=== PATIENT | female | born 1990 | race African-American/Black ===

== ENCOUNTER 2016-12-29 21:35 | Emergency (ER) | payer BC ==
[2016-12-29] MEDS ORDERED: KETOROLAC TROMETHAMINE 60 MG/2 ML VIAL IM ONE ×2 (22:02→22:04)
[2016-12-29] MEDS ORDERED: KETOROLAC TROMETHAMINE 30 MG/ML VIAL IM ONE (22:07)
[2016-12-29] MEDS ORDERED: CEPHALEXIN MONOHYDRATE 250 MG CAPSULE PO ONE (22:07)
[2016-12-29] MEDS ORDERED: oxyCODONE HCL/ACETAMINOPHEN 1 TAB TABLET PO ONE (22:07)
[2016-12-29] MEDS ORDERED: CEPHALEXIN MONOHYDRATE 250 MG CAPSULE ONE (22:20)
[2016-12-29] MEDS ORDERED: oxyCODONE HCL/ACETAMINOPHEN 1 TAB TABLET ONE (22:20)
--- NOTE | 2016-12-29 22:24 | ERNOTE ---
Integumentary HPI - Narrative Date of Service: 12/29/16 - General Presenting Symptoms: abscess Time Seen by Provider: 12/29/16 21:44 Source: patient Exam Limitations: no limitations - Immun/Allergies/Home Medications Immunizations: IMMUNIZATION HX Immunizations Up to Date Yes History of Influenza Vaccine No Hx Pneumococcal Vaccination No Allergies/Adverse Reactions: Allergies Allergy/AdvReac Type Severity Reaction Status Date / Time No Known Allergies Allergy Unverified 12/29/16 21:41 Home Medications: HOME MEDICATIONS Cephalexin Monohydrate [Keflex] 500 mg PO QID #40 cap 12/29/16 [Last Taken Unknown] Clindamycin HCl [Cleocin HCl] 300 mg PO TID 12/29/16 [Last Taken Unknown] HYDROcodone/ACETAMINOPHEN [[place] 5-325] 1 - 2 tab PO Q6H PRN 12/29/16 [Last Taken Unknown] Sulfamethoxazole/Trimethoprim [Bactrim Ds] 1 tab PO BID #20 tab 12/29/16 [Last Taken Unknown] oxyCODONE HCL/ACETAMINOPHEN [Percocet 5 MG/325 MG] 1 tab PO Q8H #16 tablet 12/29 [Last Taken Unknown] - Pain Pain Score: 10 - History of Present Illness Narrative: Patient has been seen in multiple ER due to an abscess on the L axilla area. Patient was placed on antibiotics and send to a Surgeon for follow up. Location: Reports: axillary - L side Quality: Reports: painful Severity: severe Exposure: Reports: no cause identified Modifying Factors - (Improves): Reports: other - nothing Modifying Factors - (Worsens): Reports: other - palpation, movement Associated Symptoms: Reports: swelling/mass/lumps. Denies: fever, jaundice Prior Treatment: Reports: recently seen - Patient has been seen for same problem. Review of Systems - Review of Systems Constitutional: Present: chills EYE: Present: no symptoms reported ENT: Present: no symptoms reported Respiratory: Present: no symptoms reported Cardiology: Present: no symptoms reported Gastrointestinal/Abdominal: Present: no symptoms reported Genitourinary: Present: no symptoms reported Musculoskeletal: Absent: muscle pain, joint pain, joint swelling Skin: Present: lumps - Patient has a large mass on the L axilla area that is dripping a purulent material Neurological: Present: anxiety Endocrine: Present: no symptoms reported Hematologic/Lymphatic: Present: no symptoms reported Psych: Present: no symptoms reported All Other Systems: All systems neg except as marked - Patient's Past Medical History Patient History - Medical: No pertinent hx Patient History - Cardiac/Respiratory: No pertinent hx Patient History - Cancer: No Hx of Cancer Patient History - Surgical Procedures: Patient History - Other: None LMP (females 10-50): 3 weeks - Social History Living Situations: home Abuse History: No History of abuse Psych History: No pertinent hx Smoking Status: Former smoker Alcohol Use: none Drug Use: none - Immunizations Immunizations Up to Date: Yes Hx Pneumococcal Vaccination: No History of Influenza Vaccine: No Physical Exam - Physical Exam General Appearance: Present: wd/wn, alert, obese, other - Patient is on pain Eye Exam: Normal inspection: bilateral Ears, Nose, Throat: Present: normal ENT inspection, hearing grossly normal, normal pharynx Neck: Present: normal inspection, nontender Respiratory: Present: no respiratory distress, normal breath sounds, no accessory muscle use, chest nontender, lungs clear Cardiovascular/Chest: Present: regular rate, rhythm, no murmur, normal peripheral pulses Gastrointestinal/Abdominal: Present: normal bowel sounds Extremity Exam: Present: normal inspection, normal range of motion, other - There is mild swelling on the L proximal arm close to the axilla area Neurological Exam: Present: alert, oriented, normal mood/affect, no motor/ sensory deficits Skin Exam: Present: other - Patient has an abscess of 2cm x 2cm on the L axilla area with purulent material. Patient ROM is limited due to pain, but articulation is not involved.. Absent: diaphoresis, cyanosis, jaundice, pallor Lymphatic Exam: Present: axilla node (L) ED Progress - Vital Signs Patient's Vital Signs:: I have reviewed the patient's vital signs. Vital Signs: Vital Signs 12/29/16 21:42 Temperature 36.1 C L Pulse Rate 99 Respiratory 18 Rate Blood Pressure 129/72 O2 Sat by Pulse 100 Oximetry - Progress/Reassessment Chief Complaint: Abscess Progress:: Improved - Transfer of Care Expected Disposition: Discharge Procedures Left Proximal Arm Date and Time: 12/29/16 22:15 12/29/2016 @ 22:16 at ER # 1 Anesthesia: 1% Lidocaine I & D Prep: betadine prep Blade Size: 15 Findings and Actions: purulent drainage large, probed/breakup loculation, packed with guaze Estimated blood loss (ml): 2 Complications: Pt kecia procedure well Comments:: Patient was changed antibiotics Plan - Plan Plan: Patient is to return in 2 days for follow up and will need to follow with Surgeon in office. Departure Clinical Impression: Abscess - Departure Disposition: Home self-care Condition: Stable Instructions: Incision and Drainage, Care After, Abscess, [id number] Referrals: Flavio Turpin MD [Associate] - Prescriptions: Cephalexin Monohydrate [Keflex] 500 mg PO QID #40 cap Sulfamethoxazole/Trimethoprim [Bactrim Ds] 1 tab PO BID #20 tab oxyCODONE HCL/ACETAMINOPHEN [Percocet 5 MG/325 MG] 1 tab PO Q8H #16 tablet
[2016-12-29 22:39] VITALS: BP 112/64
== END 2016-12-29 22:45 | disposition home or self-care (01) ==
LOC: ER 21:35
PROC: 0H97XZZ Drainage of Abdomen Skin, External Approach (ICD-10-PCS; principal; 2016-12-29)
DX: L02.414 Cutaneous abscess of left upper limb (principal)

== ENCOUNTER 2017-01-01 10:48 | Emergency (ER) | payer BC ==
[2017-01-01 11:00] VITALS: BP 114/69
--- NOTE | 2017-01-01 11:46 | ERNOTE ---
Medical Problem HPI - Narrative Date of Service: 01/01/17 - General Chief Complaint: Screening, Suture/Wound Time Seen by Provider: 01/01/17 11:12 Source: patient Exam Limitations: no limitations - Immun/Allergies/Home Medications Immunizations: IMMUNIZATION HX Immunizations Up to Date Yes History of Influenza Vaccine No Hx Pneumococcal Vaccination No Allergies/Adverse Reactions: Allergies No Known Allergies Allergy (Verified 01/01/17 11:00) Home Medications: HOME MEDICATIONS Cephalexin Monohydrate [Keflex] 500 mg PO QID #40 cap 12/29/16 [Last Taken Unknown] Sulfamethoxazole/Trimethoprim [Bactrim Ds] 1 tab PO BID #20 tab 12/29/16 [Last Taken Unknown] oxyCODONE HCL/ACETAMINOPHEN [Percocet 5 MG/325 MG] 1 tab PO Q8H #16 tablet 12/29 [Last Taken Unknown] Fluconazole 150 mg PO DAILY #2 tablet 01/01/17 [Last Taken Unknown] - History of Present History Date (Duration): 01/01/17 Time (Timing): 11:00 Severity: mild Modifying Factors - (Improves): Present: immobilization, medication Modifying Factors - (Worsens): Present: movement Review of Systems - Narrative Narrative: 26 year old female patient presented to the ER for a follow up dressing change to her left axilla I&D. Patient was seen 2 days ago and had I&D performed. she was told to return in 2 days for dressing change. she states she has a surgical consult on . - Review of Systems Constitutional: Present: no symptoms reported EYE: Present: no symptoms reported ENT: Present: no symptoms reported Respiratory: Present: no symptoms reported Cardiology: Present: no symptoms reported Gastrointestinal/Abdominal: Present: no symptoms reported Genitourinary: Present: no symptoms reported Musculoskeletal: Present: no symptoms reported Skin: Present: See HPI Neurological: Present: no symptoms reported Endocrine: Present: no symptoms reported Hematologic/Lymphatic: Present: no symptoms reported Psych: Present: no symptoms reported - Patient's Past Medical History Patient History - Medical: No pertinent hx Patient History - Cardiac/Respiratory: No pertinent hx Patient History - Cancer: No Hx of Cancer Patient History - Surgical Procedures: , Other Additional Info: she has had previous I&D to axilla wounds. Patient History - Other: None - Social History Living Situations: home Abuse History: No History of abuse Psych History: No pertinent hx Does anyone smoke in the home?: No Smoking Status: Never smoker Have you smoked in the past 12 months: No Alcohol Use: none Drug Use: none - Immunizations Immunizations Up to Date: Yes Hx Pneumococcal Vaccination: No History of Influenza Vaccine: No Physical Exam - Physical Exam General Appearance: Present: wd/wn Eye Exam: Normal inspection: bilateral Ears, Nose, Throat: Present: normal ENT inspection Neck: Present: normal inspection Respiratory: Present: no respiratory distress Cardiovascular/Chest: Present: regular rate, rhythm Gastrointestinal/Abdominal: Present: normal bowel sounds Back Exam: Present: normal inspection Extremity Exam: Present: normal inspection Neurological Exam: Present: alert Skin Exam: Present: normal color, warm/dry, other - left axilla dressing was absent, just packing was inplace. packing removed. small amount of serous drainage noted. wound bed is warm and red. very tender to area and surrounding tissue. patient has previous scaring from previous similar infections ( per patient). Area cleansed and repacked. no bleeding observed. patient tolerated well. dry dressing placed over packing with tegaderm in place. Lymphatic Exam: Present: no adenopathy Pelvic Exam: Present: other ED Progress - Vital Signs Patient's Vital Signs:: I have reviewed the patient's vital signs. Vital Signs: Vital Signs 01/01/17 10:57 Temperature 35.1 C L Pulse Rate 72 Respiratory 14 Rate Blood Pressure 114/69 O2 Sat by Pulse 100 Oximetry - Progress/Reassessment Chief Complaint: Screening, Suture/Wound Progress:: Improved Procedures Left axilla Date and Time: 01/01/17 11:47 see exam note. Findings and Actions: packed with guaznorma Plan - Plan Plan: patient is to continue her abx and keep her follow up apts. Patient has follow up apt with Dr Simpson on . Departure - Departure Clinical Impression: Abscess Disposition: Home Follow Up Needed Condition: Stable Instructions: Incision and Drainage, Abscess, [id number], Vaginal Yeast Infection, Adult Additional Instructions: Keep follow up appointment with Dr. Simpson on . Continue current antibiotics. Keep area clean and dry. Prescriptions: Fluconazole 150 mg PO DAILY #2 tablet
== END 2017-01-01 12:18 | disposition home or self-care (01) ==
LOC: ER 10:48
DX: L02.412 Cutaneous abscess of left axilla (principal)